=== PATIENT | female | born 1990 | race Caucasian/White ===

== ENCOUNTER 2016-11-29 18:35 | Emergency (ER) | payer OTHER, BC ==
[2016-11-29 18:52] VITALS: BP 110/71
--- NOTE | 2016-11-29 19:17 | UC ---
Complaint Female HPI - HPI Summary HPI Summary: 26F presents with dysuria, frequency, or urgency since last night. She denies any flank pain, fever, nausea or vomiting. She states this feels like she has a UTI. She denies any abdominal pain. She denies any abnormal vaginal discharge. She has history of UTIs but has not had one in 4 years. She has a family history of UTIs. She has been taking azo for past day. - History Of Current Complaint Hx Last Menstrual Period: 11/25/16 <Becky Richter - Last Filed: 11/29/16 19:39> <Jessica Felix - Last Filed: 11/29/16 20:35> - History Of Current Complaint Chief Complaint: [facility]CGU Stated Complaint: UTI POSS Time Seen by Provider: 11/29/16 18:56 - Allergies/Home Medications Allergies/Adverse Reactions: Allergies Allergy/AdvReac Type Severity Reaction Status Date / Time No Known Allergies Allergy Verified 11/29/16 18:52 Home Medications: Home Medications Pumpkin Seed-Soy Germ [Azo Bladder Control/Go-Le] 1 cap PO 11/29/16 [History] PMH/Surg Hx/FS Hx/Imm Hx Previously Healthy: Yes Endocrine History: Other Other Endocrine History: no HTN Cardiovascular History: Other Other Cardiovascular History: no DM - Surgical History Surgical History: None - Family History Known Family History: Positive: Other - UTIs - Social History Alcohol Use: Weekly Substance Use Type: None Smoking Status (MU): Never Smoked Tobacco <Becky Richter - Last Filed: 11/29/16 19:39> Review of Systems Constitutional: Negative Respiratory: Negative Cardiovascular: Negative Gastrointestinal: Negative Genitourinary: Dysuria, Frequency, Urgency All Other Systems Reviewed And Are Negative: Yes <Becky Richter - Last Filed: 11/29/16 19:39> Physical Exam Triage Information Reviewed: Yes Appearance: Well-Appearing Vital Signs: Initial Vital Signs Temp 98.8 F 11/29/16 18:47 Pulse 89 11/29/16 18:47 Resp 16 11/29/16 18:47 BP 110/71 11/29/16 18:47 Pulse Ox 100 11/29/16 18:47 Vital Signs Reviewed: Yes Eyes: Positive: Conjunctiva Clear ENT: Positive: Normal ENT inspection, Pharynx normal, TMs normal Respiratory: Positive: Lungs clear, Normal breath sounds Cardiovascular: Positive: RRR Abdomen Description: Positive: Nontender, Soft. Negative: CVA Tenderness (R) Bowel Sounds: Positive: Present <TaylormarySofieBecky - Last Filed: 11/29/16 19:39> Vital Signs: Initial Vital Signs Temp 98.8 F 11/29/16 18:47 Pulse 89 11/29/16 18:47 Resp 16 11/29/16 18:47 BP 110/71 11/29/16 18:47 Pulse Ox 100 11/29/16 18:47 <Jessica Felix - Last Filed: 11/29/16 20:35> Complaint Female Dx - Course Course Of Treatment: 26F presents with dysuria, frequency, or urgency since last night. She denies any flank pain, fever, nausea or vomiting. She states this feels like she has a UTI. She denies any abdominal pain. She denies any abnormal vaginal discharge. She has history of UTIs but has not had one in 4 years. on exam abdomen nontender, neg CVA tenderness. u/a leuko and nitrates. due to symptoms will treat as uti although azo may make dipstick inaccurate. will treat with bactrim. patient understands and agrees with plan. - Differential Dx/Diagnosis Differential Diagnosis/HQI/PQRI: , Ureteral Stone, Urinary Tract Infection Provider Diagnoses: urinary tract infection <Becky Richter - Last Filed: 11/29/16 19:39> Discharge <Becky Richter - Last Filed: 11/29/16 19:39> <Jessica Felix - Last Filed: 11/29/16 20:35> - Discharge Plan Condition: Good Disposition: HOME Prescriptions: Sulfamethox/Trimethoprim DS* [Bactrim DS 800/160 TAB*] 1 tab PO BID #10 tab Patient Education Materials: Urinary Tract Infection in Women (ED) Referrals: [facility] [Outside] Additional Instructions: Take Bactrim twice a day for 5 days Follow up with [facility] in 7 days Return to ED if develop persistent vomiting or any new or worsening symptoms Attestation Statement User Type: Provider - I was available for consult. This patient was seen by the JM. The patient was not presented to, seen by, or examined by me. -Candida <Jessica Felix - Last Filed: 11/29/16 20:35>
--- NOTE | 2016-12-02 16:46 | UC ---
Progress - Progress Note Progress Note: ON BACTRIM AT DISCHARGE. CULTURE AND SENSITIVITY SHOW MICROBE IS SENSITIVE TO SELECTED THERAPY NO CHANGE OF TREATMENT COURSE REQUIRED AT THIS TIME <Raymundo Feliciano - Last Filed: 12/02/16 16:44> Attestation Statement User Type: Provider - I was available for consult. This patient was seen by the JM. The patient was not presented to, seen by, or examined by me. -Candida <Jessica Felix - Last Filed: 12/03/16 09:19>
== END 2016-11-29 19:51 | disposition home or self-care (01) ==
LOC: UCEAST 18:35
DX: N39.0 Urinary tract infection, site not specified (principal); Z32.02 Encounter for pregnancy test, result negative; Z87.440 Personal history of urinary (tract) infections
CPT/HCPCS: 81003; 84702; 87077; 87086; 87186; 99202; G0463